=== PATIENT | female | born 1995 | race Caucasian/White ===

== ENCOUNTER 2017-10-26 19:49 | Emergency (ER) | payer OTHER ==
[~2017-10-26] VITALS: Ht 177.8 cm; Wt 89.6 kg
[~2017-10-26 19:49] MED LIST: TRAM50 PO
[2017-10-26 20:11] VITALS: BP 135/87; TEMP 99; O2SAT 98
--- NOTE | 2017-10-26 21:09 | PD ---
HPI Chief Complaint: Cold / Flu Symptoms Time Seen by Provider: 20:47 Travel History International Travel<30 days: No Contact w/Intl Traveler<30days: No Traveled to known affect area: No History of Present Illness HPI The patient was seen and examined in the presence of the nurse. This patient presents with her father for complaint of congestion and runny nose and body aches and low-grade temperature. Apparently her sister was diagnosed with influenza recently. Severity is moderate. No alleviating factors. She is a nonsmoker [facility] Past Medical History Medical History: Denies Significant Hx Developmental Delay: No Diminished Hearing: No Immunizations Current: Yes Influenza Vaccination: Yes ?: Not LMP: TODAY : 0 Past Surgical History Surgical History: No Previous Surgery Social History Alcohol Use: Yes (RARE) Tobacco Use: No Substance Use: No Allergies-Medications (Allergen,Severity, Reaction): Coded Allergies: No Known Allergies (Verified Adverse Reaction, Unknown, 10/26/17) Reported Meds & Prescriptions Reported Meds & Active Scripts Active No Active Prescriptions or Reported Medications Review of Systems General / Constitutional: Positive: Fever Cardiovascular: No: Chest Pain or Discomfort Respiratory: Positive: Cough Gastrointestinal: No: Diarrhea Physical Exam Narrative GENERAL: Well-nourished, well-developed patient in no apparent distress. SKIN: Focused skin assessment reveals no rash and nodules. Skin is Warm and dry. HEAD: Atraumatic. Normocephalic. EYES: Pupils equal and round. No scleral icterus. No injection or drainage. ENT: No nasal bleeding or discharge. Mucous membranes pink and moist. TMs and throat normal NECK: Trachea midline. No JVD. No meningeal signs CARDIOVASCULAR: Regular rate and rhythm. No murmur appreciated. RESPIRATORY: No accessory muscle use. Clear to auscultation. Breath sounds equal bilaterally. GASTROINTESTINAL: Abdomen soft, non-tender, nondistended. Hepatic and splenic margins not palpable. MUSCULOSKELETAL: No obvious deformities. No clubbing. No cyanosis. No edema. NEUROLOGICAL: Awake and alert. No obvious cranial nerve deficits. Motor grossly within normal limits. Normal speech. PSYCHIATRIC: Appropriate mood and affect; insight and judgment normal. Data Data Last Documented VS Vital Signs Date Time Temp Pulse Resp B/P (MAP) Pulse Ox O2 Delivery O2 Flow Rate FiO2 10/26/17 20:50 16 98 Room Air 10/26/17 20:11 99.0 97 135/87 (103) Orders Orders Influenzae A/B Antigen (10/26/17 20:58) MDM Medical Decision Making Medical Screen Exam Complete: Yes Emergency Medical Condition: Yes Medical Record Reviewed: Yes Differential Diagnosis Flu syndrome, pneumonia, bronchitis Narrative Course I have reviewed the patient's electronic medical record. Presentation is consistent with an acute viral syndrome. Supportive care is discussed. Father specifically wants influenza testing done and Tamiflu prescribed if positive. We had a discussion regarding its Limited health benefits and placebo like status but he still wants it. Influenza is negative Diagnosis Primary Impression: Acute viral syndrome Additional Instructions: The patient was advised to follow up with their physician and return if they worsen. Med/Other Pt SpecificInfo: Other Scripts No Active Prescriptions or Reported Meds Disposition: 01 DISCHARGE HOME Condition: Stable Stevie Castle MD Oct 26, 2017 21:09
[2017-10-26 21:50] VITALS: BP 125/78; PULSE 78; RESP 14; O2SAT 98
== END 2017-10-26 22:29 | disposition home or self-care (01) ==
LOC: PHED 19:49
DX: B34.9 Viral infection, unspecified (principal)
CPT/HCPCS: 87804; 99283

== ENCOUNTER 2017-11-08 11:56 | Emergency (ER) | payer OTHER ==
[~2017-11-08] VITALS: Ht 177.8 cm; Wt 90.3 kg
[2017-11-08 11:59] VITALS: BP 132/77; PULSE 80; RESP 16; TEMP 98.9; O2SAT 99
--- NOTE | 2017-11-08 12:45 | PD ---
HPI Chief Complaint: Musculoskeletal Complaint Time Seen by Provider: 12:40 Travel History International Travel<30 days: No Contact w/Intl Traveler<30days: No Traveled to known affect area: No History of Present Illness HPI 22-year-old female presents to the emergency department for evaluation of right elbow injury that occurred approximately 3 days ago. Patient states she hit her elbow against a door. She states the pain has been worsening. No fevers or chills. She has no medical problems and takes no medications. She denies any risk of . Mild severity. Exacerbating factor is movement. Alleviating factors keeping a posterior. Pain radiates to the wrist. PFSH Past Medical History Developmental Delay: No Diminished Hearing: No Immunizations Current: Yes ?: Not LMP: 2 WEEKS : 0 Past Surgical History Surgical History: No Previous Surgery Social History Alcohol Use: No Tobacco Use: No Substance Use: No Allergies-Medications (Allergen,Severity, Reaction): Coded Allergies: No Known Allergies (Verified Adverse Reaction, Unknown, 11/08/17) Reported Meds & Prescriptions Reported Meds & Active Scripts Active No Active Prescriptions or Reported Medications Review of Systems Except as stated in HPI: all other systems reviewed are Neg Physical Exam Narrative GENERAL: Well-nourished, well-developed female patient, ambulatory. Afebrile. SKIN: Focused skin assessment warm/dry. No lacerations or abrasions to right elbow. No ecchymosis. HEAD: Normocephalic. Atraumatic. EYES: No scleral icterus. No injection or drainage. NECK: Supple, trachea midline. No JVD or lymphadenopathy. CARDIOVASCULAR: Regular rate and rhythm without murmurs, gallops, or rubs. RESPIRATORY: Breath sounds equal bilaterally. No accessory muscle use. Lungs sounds are clear to auscultation GASTROINTESTINAL: Abdomen soft, non-tender, nondistended. MUSCULOSKELETAL: No cyanosis, or edema. Patient has tenderness to palpation over right posterior elbow. She has full flexion-extension without pain or stiffness. BACK: Nontender without obvious deformity. No CVA tenderness. Data Data Last Documented VS Vital Signs Date Time Temp Pulse Resp B/P (MAP) Pulse Ox O2 Delivery O2 Flow Rate FiO2 11/08/17 11:59 98.9 80 16 132/77 (95) 99 Orders Orders Elbow, Complete (4 Vws) (11/08/17 ) [facility] Medical Decision Making Medical Screen Exam Complete: Yes Emergency Medical Condition: Yes Medical Record Reviewed: Yes Interpretation(s) Last Impressions Elbow X-Ray 11/08/17 0000 Signed Impressions: Service Date/Time: Wednesday, November 08, 2017 12:54 - CONCLUSION: No acute disease. Jay Vigil MD Differential Diagnosis Contusion versus sprain versus strain Narrative Course 22-year-old female presents to the emergency department for evaluation of right elbow pain after she hit it against a door 3 days ago. Patient appears well. X -ray of the right elbow is ordered and pending. X-ray of the right elbow shows no acute disease. Patient instructed ice, ibuprofen [id number] as needed for pain. Follow-up with your primary care physician. Return to the emergency department for any acute worsening of symptoms. Diagnosis Primary Impression: Contusion of right elbow Qualified Codes: S50.01XA - Contusion of right elbow, initial encounter Referrals: Primary Care Physician call for appointment Patient Instructions: Contusion in Adults (ED), General Instructions Additional Instructions: Ice for 20 minutes 4-5 times daily. [id number] ibuprofen every 6-8 hours as needed for pain Follow-up with your primary care physician. Return to the emergency department for any acute worsening of symptoms. Med/Other Pt SpecificInfo: No Change to Meds Scripts No Active Prescriptions or Reported Meds Disposition: 01 DISCHARGE HOME Condition: Stable Brielle Marcelo LEO Nov 08, 2017 12:45
--- NOTE | 2017-11-08 13:22 | RADRPT ---
EXAM DATE/TIME: 11/08/2017 12:54 [facility] COMPARISON: No previous studies available for comparison. INDICATIONS : Hit elbow on a door 3 days ago, has pain MEDICAL HISTORY : None. SURGICAL HISTORY : None. ENCOUNTER: Initial ACUITY: 3 days PAIN SCORE: 5/10 LOCATION: Right elbow TECH NOTE: Denies , NILSA Arreaga MR#[id number] :97 Exam date/desc:November 08, 2017EL BOW RIGHT COMPLETE (4 VWS) FINDINGS: Multiple view examination of the right elbow demonstrates no soft tissue swelling, joint effusion, or fracture. The osseous structures are in normal alignment. Bony mineralization is normal. CONCLUSION: No acute disease. Jay Vigil MD on November 08, 2017 at 13:19 Board Certified Radiologist. This report was verified electronically.
== END 2017-11-08 13:42 | disposition home or self-care (01) ==
LOC: PHEFT 11:56
DX: S50.01XA Contusion of right elbow, initial encounter (principal); W22.8XXA Striking against or struck by other objects, initial encounter
CPT/HCPCS: 73080; 99283